=== PATIENT | female | born 2000 | race Caucasian/White ===

== ENCOUNTER 2021-10-23 20:17 | Emergency (ER) | payer OTHER | END 2021-10-23 22:27 | disposition home or self-care (01) | LOC: CSHERS 20:17 | DX: R05.9 Cough, unspecified (principal); Z20.822 Contact with and (suspected) exposure to COVID-19 | CPT/HCPCS: 99283 ==

== ENCOUNTER 2021-11-19 16:32 | Emergency (ER) | payer OTHER | END 2021-11-19 18:19 | disposition home or self-care (01) | LOC: CSHERS 16:32 | DX: O99.891 Other specified diseases and conditions complicating pregnancy (principal); M54.9 Dorsalgia, unspecified; Z3A.14 14 weeks gestation of pregnancy; W01.0XXA Fall on same level from slipping, tripping and stumbling without subsequent striking against object, initial encounter ==

== ENCOUNTER 2021-12-18 12:31 | Emergency (ER) | payer OTHER ==
[2021-12-18 23:46] LABS: SARS-CoV-2 PCR by NAA Not Detected (NotDetected)
== END 2021-12-18 15:05 | disposition home or self-care (01) ==
LOC: CSHERS 12:31
DX: B34.9 Viral infection, unspecified (principal); Z20.822 Contact with and (suspected) exposure to COVID-19
CPT/HCPCS: 87804; 99283; U0003; U0005

== ENCOUNTER 2022-01-31 16:36 | Emergency (ER) | payer OTHER ==
[2022-01-31 17:53] LABS: Bilirubin Neg (Negative); Blood, Urine Negative (Negative); Clarity Clear (Clear); Glucose, Urine (Dipstick) Normal (Negative); Ketone, Urine Negative (Negative); Leukocyte Negative (Negative); Nitrite Negative (Negative); Protein, Urine (Dipstick) 15 mg/dl (Neg-Trace); Specific Gravity, Urine 1.025 (1.002-1.036)
== END 2022-01-31 18:35 | disposition home or self-care (01) ==
LOC: CSHERS 16:36
DX: O99.891 Other specified diseases and conditions complicating pregnancy (principal); M54.50 Low back pain, unspecified; Z87.891 Personal history of nicotine dependence; Z3A.24 24 weeks gestation of pregnancy
CPT/HCPCS: 81003; 99283

== ENCOUNTER 2022-04-03 11:02 | Day surgery (SDC) | payer OTHER ==
[2022-04-03 12:27] VITALS: BMI 31.8
[2022-04-03] MEDS ORDERED: hydrALAZINE 20 MG/ML VIAL SLOW IVP PRN (13:09)
[2022-04-03 19:42] LABS: Hemoglobin A1c 5.2 % (4.0-6.0)
== END 2022-04-03 14:30 | disposition home or self-care (01) ==
LOC: CSHLD/OP 11:02
PROVIDERS: ATTEND Obstetrics & Gynecology
DX: O26.893 Other specified pregnancy related conditions, third trimester (principal); R10.2 Pelvic and perineal pain; M54.50 Low back pain, unspecified; O99.343 Other mental disorders complicating pregnancy, third trimester; F41.9 Anxiety disorder, unspecified; O24.415 Gestational diabetes mellitus in pregnancy, controlled by oral hypoglycemic drugs; Z3A.33 33 weeks gestation of pregnancy; Z91.19 Patient's noncompliance with other medical treatment and regimen
CPT/HCPCS: 36415; 36416; 76819; 83036; 99283

== ENCOUNTER → 2022-04-17 15:02 | Emergency (ER) | payer OTHER | END | disposition home or self-care (01) | LOC: CSHERS 15:02 | DX: O99.713 Diseases of the skin and subcutaneous tissue complicating pregnancy, third trimester (principal); L03.111 Cellulitis of right axilla; Z3A.35 35 weeks gestation of pregnancy; Z87.891 Personal history of nicotine dependence | CPT/HCPCS: 99283 ==

== ENCOUNTER 2022-04-20 11:30 | Observation (INO) | payer OTHER ==
[2022-04-20] MEDS ORDERED: Ondansetron PF 4 MG/2 ML Vial ONE (11:39)
[2022-04-20] MEDS ORDERED: Morphine 4 MG/ML VIAL ONE (11:39)
[2022-04-20] MEDS ORDERED: Boostrix 0.5 ML (Tdap) VIAL ONE (12:18)
[2022-04-20 12:19] LABS: ALT (SGPT) 44 U/L (8-55); AST (SGOT) 29 U/L (5-34); Albumin 3.2 g/dL (3.5-5.0); Alkaline Phosphatase 142 U/L (40-110); Anion Gap 17 mmol/L (10-20); BUN (Urea Nitrogen) 10 mg/dL (7.0-18.7); Bilirubin, Total 0.8 mg/dL (0.2-1.2); Calc. Creatinine Clearance 0 mL/min (70-130); Calcium 8.3 mg/dL (7.8-10.44); Carbon Dioxide 16 mmol/L (22-29); Chloride 108 mmol/L (98-107); Globulin 2.9 g/dL (2.4-3.5); Glucose 101 mg/dL (70-105); Magnesium 1.7 mg/dL (1.6-2.6); Potassium 3.8 mmol/L (3.5-5.1); Protein, Total 6.1 g/dL (6.0-8.3); Sodium 137 mmol/L (136-145)
[2022-04-20 13:38] LABS: Bilirubin Neg (Negative); Blood, Urine Negative (Negative); Clarity Clear (Clear); Glucose, Urine (Dipstick) Normal (Negative); Ketone, Urine 15 mg/dL (Negative); Leukocyte Negative (Negative); Nitrite Negative (Negative); Protein, Urine (Dipstick) Negative (Neg-Trace)
[2022-04-20] MEDS ORDERED: Bacitracin 1 PK ONE (13:50)
[2022-04-20] MEDS ORDERED: Acetaminophen 500 MG TAB ONE (14:01)
[2022-04-20] MEDS ORDERED: Ondansetron PF 4 MG/2 ML Vial IVP PRN ×2 (14:17→14:23)
[2022-04-20] MEDS ORDERED: hydrALAZINE 20 MG/ML VIAL SLOW IVP PRN (14:17)
[2022-04-20] MEDS ORDERED: Promethazine HCl 25 MG/ML VIAL IM PRN (14:17)
[2022-04-20] MEDS ORDERED: Iopamidol 300 61% 100 ML VIAL FS ONE (14:27)
[2022-04-20] MEDS ORDERED: traMADol HCl 50 MG TAB PO PRN (14:27)
[2022-04-20] MEDS ORDERED: Acetaminophen 650 MG Suppository PR SCH (14:30)
[2022-04-20] MEDS ORDERED: Morphine 2 MG/ML VIAL SLOW IVP PRN ×2 (14:33→14:58)
[2022-04-20 14:38] LABS: #Eosinphils 0.1 10x3/uL (0.0-0.5); #Monocytes 0.4 10x3/uL (0.0-1.1); #Neutrophils 4.5 10x3/uL (1.5-8.4); %Basophils 0.3 % (0.0-2.0); %Eosinophils 1.2 % (0.0-6.0); %Monocytes 6.1 % (0.0-10.0); %Neutrophils 67.9 % (40.0-75.0); Hemoglobin 10.2 g/dL (12.0-15.5); Mean Corpuscular HGB CONC 32.5 g/dL (32.0-36.0); Mean Corpuscular Hemoglobin 29.2 pg (27.0-33.0); Mean Platelet Volume 12.1 fl (7.4-10.4); Platelet Count 156 10x3/uL (150-450); RBC Distribution Width 15.9 % (11.5-14.5); Red Blood Cell (RBC) Count 3.49 10x6/uL (3.90-5.03); White Blood Cell (WBC) Count 6.6 10x3/uL (3.5-10.5)
[2022-04-20] MEDS: Acetaminophen 325 MG TAB PO SCH ×2 (15:04→20:48)
[2022-04-20] MEDS: Cyclobenzaprine 10 MG TAB PO SCH ×2 (15:04→20:54)
[2022-04-20 15:14] VITALS: BMI 31.1
[2022-04-20 18:40] LABS: SARS-CoV-2 NAA Rapid Test Not Detected (NotDetected)
[2022-04-20] MEDS ORDERED: Zolpidem Tartrate 5 MG TAB PO PRN (20:16)
[2022-04-20] MEDS: busPIRone HCl 15 MG TAB PO SCH (20:49)
[2022-04-20] MEDS: Clindamycin 150 MG CAP PO SCH (20:55)
[2022-04-20] MEDS ORDERED: metFORMIN 500 MG TAB PO SCH (21:30)
[2022-04-20] MEDS: metFORMIN 500 MG TAB PO SCH (21:31)
[2022-04-21] MEDS ORDERED: Morphine 4 MG/ML VIAL SLOW IVP PRN (02:15)
[2022-04-21] MEDS: Cyclobenzaprine 10 MG TAB PO SCH ×2 (02:48→08:53)
[2022-04-21] MEDS: Acetaminophen 325 MG TAB PO SCH ×2 (02:49→08:54)
[2022-04-21] MEDS: Clindamycin 150 MG CAP PO SCH ×2 (02:50→09:19)
[2022-04-21] MEDS: metFORMIN 500 MG TAB PO SCH (08:07)
[2022-04-21] MEDS: busPIRone HCl 15 MG TAB PO SCH (08:55)
[2022-04-21] MEDS ORDERED: Prenatal Vitamin 1 TAB PO SCH (09:00)
== END 2022-04-21 13:13 | disposition home or self-care (01) ==
LOC: CSHERS 11:30 → CSHLD 13:34
PROVIDERS: ADMIT Obstetrics & Gynecology; ATTEND Obstetrics & Gynecology
DX: O9A.213 Injury, poisoning and certain other consequences of external causes complicating pregnancy, third trimester (principal); R10.11 Right upper quadrant pain; M54.2 Cervicalgia; M79.602 Pain in left arm; M25.562 Pain in left knee; M25.531 Pain in right wrist; O24.415 Gestational diabetes mellitus in pregnancy, controlled by oral hypoglycemic drugs; Z3A.35 35 weeks gestation of pregnancy; Z20.822 Contact with and (suspected) exposure to COVID-19; Z87.891 Personal history of nicotine dependence; V29.50XA Motorcycle passenger injured in collision with unspecified motor vehicles in traffic accident, initial encounter
CPT/HCPCS: 36416; 70450; 71045; 72125; 72170; 74177; 76815; 80053; 81003; 83735; 85025; 86850; 86900; 86901; 90715; 96374; 99285; G0378; G0390; J2270; J2405; U0002

== ENCOUNTER 2022-04-23 23:28 | Day surgery (SDC) | payer OTHER ==
[2022-04-23 23:53] VITALS: BMI 31.1
[2022-04-24] MEDS ORDERED: hydrALAZINE 20 MG/ML VIAL SLOW IVP PRN (00:34)
[2022-04-24 01:16] LABS: Bilirubin Neg (Negative); Blood, Urine Negative (Negative); Clarity Clear (Clear); Glucose, Urine (Dipstick) Normal (Negative); Ketone, Urine Negative (Negative); Leukocyte Negative (Negative); Nitrite Negative (Negative); Protein, Urine (Dipstick) Negative (Neg-Trace)
[2022-04-24 01:19] LABS: Urine Culture Reflex No No
[2022-04-24 01:24] LABS: Bacteria/HPF Rare-Few HPF (None Seen); RBC/HPF 0-3 HPF (0-3); Squamous Epithelial 0-3 HPF (0-3); WBC/HPF 0-3 HPF (0-3)
== END 2022-04-24 02:15 | disposition home or self-care (01) ==
LOC: CSHLD/OP 23:28
PROVIDERS: ATTEND Obstetrics & Gynecology
DX: O47.03 False labor before 37 completed weeks of gestation, third trimester (principal); O24.415 Gestational diabetes mellitus in pregnancy, controlled by oral hypoglycemic drugs; Z3A.36 36 weeks gestation of pregnancy; Z79.899 Other long term (current) drug therapy
CPT/HCPCS: 81001; 99283

== ENCOUNTER 2022-04-27 23:03 | Day surgery (SDC) | payer OTHER ==
[2022-04-27 23:24] VITALS: BMI 31.4
[2022-04-28] MEDS ORDERED: Butorphanol Tartrate 1 MG/ML VIAL SLOW IVP PRN (01:16)
[2022-04-28] MEDS ORDERED: hydrALAZINE 20 MG/ML VIAL SLOW IVP PRN (01:16)
[2022-04-28] MEDS ORDERED: Lactated Ringer's 1,000 ML IV SCH (02:00)
== END 2022-04-28 02:50 | disposition home or self-care (01) ==
LOC: CSHLD/OP 23:03
PROVIDERS: ATTEND Obstetrics & Gynecology
DX: O47.03 False labor before 37 completed weeks of gestation, third trimester (principal); O24.415 Gestational diabetes mellitus in pregnancy, controlled by oral hypoglycemic drugs; Z3A.36 36 weeks gestation of pregnancy; Z79.899 Other long term (current) drug therapy; Z87.891 Personal history of nicotine dependence

== ENCOUNTER 2022-04-30 22:17 | Day surgery (SDC) | payer OTHER ==
[2022-04-30 22:47] VITALS: BMI 32.0
[2022-04-30] MEDS ORDERED: hydrALAZINE 20 MG/ML VIAL SLOW IVP PRN (23:11)
== END 2022-04-30 23:50 | disposition home or self-care (01) ==
LOC: CSHLD/OP 22:17
PROVIDERS: ATTEND Obstetrics & Gynecology
DX: O99.891 Other specified diseases and conditions complicating pregnancy (principal); N89.8 Other specified noninflammatory disorders of vagina; O24.415 Gestational diabetes mellitus in pregnancy, controlled by oral hypoglycemic drugs; Z3A.37 37 weeks gestation of pregnancy; Z87.891 Personal history of nicotine dependence; Z79.899 Other long term (current) drug therapy
CPT/HCPCS: 87480; 87510; 87660

== ENCOUNTER 2022-05-01 17:35 | Day surgery (SDC) | payer OTHER ==
[2022-05-01] MEDS ORDERED: hydrALAZINE 20 MG/ML VIAL SLOW IVP PRN (18:10)
[2022-05-01 19:04] VITALS: BMI 31.4
[2022-05-01 19:08] LABS: Fetal Membranes Rupture No Membranes Rupture (No Rupture)
== END 2022-05-01 19:45 | disposition home or self-care (01) ==
LOC: CSHLD/OP 17:35
PROVIDERS: ATTEND Obstetrics & Gynecology
DX: O99.891 Other specified diseases and conditions complicating pregnancy (principal); N89.8 Other specified noninflammatory disorders of vagina; O24.415 Gestational diabetes mellitus in pregnancy, controlled by oral hypoglycemic drugs; Z3A.37 37 weeks gestation of pregnancy; Z87.891 Personal history of nicotine dependence; Z79.2 Long term (current) use of antibiotics; Z79.899 Other long term (current) drug therapy
CPT/HCPCS: 84112

== ENCOUNTER 2022-05-03 15:19 | Outpatient (CLI) | payer OTHER | END 2022-05-03 15:20 | disposition home or self-care (01) | LOC: CSHLAB 15:19 | PROVIDERS: ATTEND Obstetrics & Gynecology | DX: Z20.822 Contact with and (suspected) exposure to COVID-19 (principal) | CPT/HCPCS: 87811 ==

== ENCOUNTER 2022-05-05 14:36 | Inpatient (IN) | payer OTHER ==
[2022-05-05] MEDS ORDERED: hydrALAZINE 20 MG/ML VIAL SLOW IVP PRN ×3 (14:55→22:58)
[2022-05-05 15:11] VITALS: BMI 30.5
[2022-05-05] MEDS: Lactated Ringer's 1,000 ML IV SCH ×2 (15:30→17:21)
[2022-05-05] MEDS ORDERED: Promethazine HCl 25 MG/ML VIAL IM PRN ×2 (15:36→18:02)
[2022-05-05] MEDS ORDERED: Ondansetron PF 4 MG/2 ML Vial IVP PRN ×3 (15:36→22:58)
[2022-05-05] MEDS ORDERED: Acetaminophen 500 MG TAB PO PRN (15:36)
[2022-05-05] MEDS ORDERED: Carboprost 250 MCG/ML AMP IM PRN (15:43)
[2022-05-05] MEDS ORDERED: Diphenoxylate HCl/Atropine Tablet PO PRN (15:43)
[2022-05-05] MEDS ORDERED: Misoprostol 200 MCG TAB PR PRN (15:43)
[2022-05-05] MEDS ORDERED: Lidocaine 1% (PF) 30 ML VIAL SC PRN (15:43)
[2022-05-05] MEDS ORDERED: Methylergonovine 0.2 MG/ML VIAL IM PRN (15:43)
[2022-05-05] MEDS ORDERED: Ibuprofen 800 MG TAB PO PRN (15:43)
[2022-05-05] MEDS ORDERED: NS w/ Oxytocin 30 units 500 ML IV SCH ×3 (15:45→23:00)
[2022-05-05] MEDS ORDERED: Dextrose 50% Abboject 50 ML SYRINGE SLOW IVP PRN (15:54)
[2022-05-05] MEDS ORDERED: HumaLOG 300 UNITS/3 ML VIAL SC PRN ×2 (15:54)
[2022-05-05] MEDS ORDERED: Dextrose 5% in Water 1,000 ML IV PRN (15:54)
[2022-05-05 15:55] LABS: Hemoglobin 11.9 g/dL (12.0-15.5); Mean Corpuscular HGB CONC 34.4 g/dL (32.0-36.0); Mean Corpuscular Hemoglobin 29.5 pg (27.0-33.0); Mean Corpuscular Volume 85.6 fl (81.6-98.3); Mean Platelet Volume 11.7 fl (7.4-10.4); Platelet Count 221 10x3/uL (150-450); RBC Distribution Width 15.3 % (11.5-14.5); Red Blood Cell (RBC) Count 4.04 10x6/uL (3.90-5.03); White Blood Cell (WBC) Count 7.8 10x3/uL (3.5-10.5)
[2022-05-05 16:27] LABS: Hep B Surf Ag Non-Reactive S/CO (NonReactive); Syphilis Antibody Nonreactive (Nonreactive); Syphilis Antibody Index 0.03 S/CO (<1.00 Non-Reactive)
[2022-05-05 16:35] LABS: HBSAg Index 0.17 S/CO (0-0.99)
[2022-05-05 16:45] LABS: Glucose POC Confirmation 81 mg/dl (70-105)
[2022-05-05] MEDS ORDERED: ePHEDrine Sulfate 50 MG/10 ML VIAL ONE (17:00)
[2022-05-05] MEDS ORDERED: Bupivacaine 0.25% HCL 30 ML VIAL ONE (17:00)
[2022-05-05] MEDS ORDERED: Fentanyl 2 mcg/Bup 0.1% Cadd 100 ML ONE (17:16)
[2022-05-05] MEDS ORDERED: Acetaminophen 325 MG TAB PO PRN (18:02)
[2022-05-05] MEDS ORDERED: Moisturizing Cream (Eucerin) 113 GM JAR TOP PRN (18:02)
[2022-05-05] MEDS ORDERED: Naloxone HCl 0.4 mg/ml Vial IVP PRN ×2 (18:02)
[2022-05-05] MEDS ORDERED: ePHEDrine Sulfate 50 MG/10 ML VIAL SLOW IVP PRN (18:02)
[2022-05-05] MEDS ORDERED: diphenhydrAMINE 50 MG/ML VIAL IVP PRN (18:02)
[2022-05-05] MEDS ORDERED: Lactated Ringer's 500 ML IV PRN (18:11)
[2022-05-05] MEDS ORDERED: Fentanyl 2 mcg/Bupivacaine 0.1% Cassette 100 ML EPIDURAL SCH (18:15)
[2022-05-05] MEDS ORDERED: Communication Order-Pharmacy FS SCH (18:15)
[2022-05-05] MEDS: Clindamycin 150 MG CAP PO SCH (19:41)
[2022-05-05] MEDS ORDERED: busPIRone HCl 15 MG TAB PO SCH (21:00)
[2022-05-05] MEDS ORDERED: diphenhydrAMINE 25 MG CAP PO PRN (22:58)
[2022-05-05] MEDS ORDERED: Lanolin Ointment 7 GM TUBE TOP PRN (22:58)
[2022-05-05] MEDS ORDERED: Preparation H Ointment 28 GM TUBE PR PRN (22:58)
[2022-05-05] MEDS ORDERED: Zolpidem Tartrate 5 MG TAB PO PRN (22:58)
[2022-05-05] MEDS ORDERED: Milk Of Magnesia 30 ML UDCUP PO PRN (22:58)
[2022-05-05] MEDS ORDERED: Boostrix 0.5 ML (Tdap) VIAL IM ONE (22:58)
[2022-05-05] MEDS ORDERED: Benzocaine-Menthol 82.5 ML CAN TOP PRN (22:58)
[2022-05-05] MEDS ORDERED: Bisacodyl 10 MG SUPP PR PRN (22:58)
[2022-05-05] MEDS ORDERED: Misoprostol 200 MCG TAB VAG PRN (22:58)
[2022-05-06] MEDS: Ibuprofen 800 MG TAB PO SCH ×3 (01:03→16:11)
[2022-05-06 04:58] LABS: Hemoglobin 10.8 g/dL (12.0-15.5); Mean Corpuscular HGB CONC 35.4 g/dL (32.0-36.0); Mean Corpuscular Hemoglobin 30.2 pg (27.0-33.0); Mean Corpuscular Volume 85.2 fl (81.6-98.3); Platelet Count 176 10x3/uL (150-450); RBC Distribution Width 15.1 % (11.5-14.5); Red Blood Cell (RBC) Count 3.58 10x6/uL (3.90-5.03); White Blood Cell (WBC) Count 10.6 10x3/uL (3.5-10.5)
[2022-05-06] MEDS ORDERED: Ibuprofen 800 MG TAB PO SCH (06:00)
[2022-05-06] MEDS: HYDROcodone/Acetaminophen 5/325 mg Tablet PO PRN ×3 (06:04→20:56)
[2022-05-06] MEDS: Clindamycin 150 MG CAP PO SCH (06:40)
[2022-05-06] MEDS: Ferrous Sulfate 325 MG TAB PO SCH (07:49)
[2022-05-06] MEDS: Prenatal Vitamin 1 TAB PO SCH (08:00)
[2022-05-06] MEDS: Docusate 100 MG CAP PO SCH ×2 (08:00→20:56)
[2022-05-07] MEDS: Ibuprofen 800 MG TAB PO SCH ×2 (00:07→09:09)
[2022-05-07] MEDS: HYDROcodone/Acetaminophen 5/325 mg Tablet PO PRN (05:29)
[2022-05-07] MEDS: Ferrous Sulfate 325 MG TAB PO SCH (08:49)
[2022-05-07 08:51] VITALS: BP 119/78; TEMP 97.9
[2022-05-07] MEDS: Prenatal Vitamin 1 TAB PO SCH (09:08)
[2022-05-07] MEDS: Docusate 100 MG CAP PO SCH (09:08)
== END 2022-05-07 13:50 | disposition home or self-care (01) | DRG 807 ==
LOC: CSHLD/OP 14:36 → CSHLD 16:28 → CSHPP 05-06 01:11
PROVIDERS: ADMIT Obstetrics & Gynecology; ATTEND Obstetrics & Gynecology
PROC: 10E0XZZ Delivery of Products of Conception, External Approach (ICD-10-PCS; principal; 2022-05-05)
DX: O42.02 Full-term premature rupture of membranes, onset of labor within 24 hours of rupture (principal); Z37.0 Single live birth; Z3A.37 37 weeks gestation of pregnancy; F41.9 Anxiety disorder, unspecified; O99.344 Other mental disorders complicating childbirth; O24.425 Gestational diabetes mellitus in childbirth, controlled by oral hypoglycemic drugs; Z79.84 Long term (current) use of oral hypoglycemic drugs; F31.9 Bipolar disorder, unspecified; K21.9 Gastro-esophageal reflux disease without esophagitis; O99.62 Diseases of the digestive system complicating childbirth; Z79.899 Other long term (current) drug therapy
CPT/HCPCS: 36415; 36416; 82947; 85027; 86780; 86850; 86900; 86901; 87340; J2590; J7120; S0020

== ENCOUNTER 2022-05-09 19:52 | Emergency (ER) | payer OTHER ==
[2022-05-09 20:55] LABS: Bilirubin Neg (Negative); Blood, Urine 250 (Negative); Clarity Clear (Clear); Glucose, Urine (Dipstick) Normal (Negative); Ketone, Urine Negative (Negative); Leukocyte 500 (Negative); Nitrite Negative (Negative); Protein, Urine (Dipstick) 30 mg/dl (Neg-Trace); Specific Gravity, Urine 1.025 (1.002-1.036); Urobilinogen Normal mg/dL (Less than 2)
[2022-05-09] MEDS ORDERED: Ketorolac Tromethamine 30 MG/ML VIAL ONE (21:12)
[2022-05-09 21:20] LABS: Bacteria/HPF 2+ HPF (None Seen); RBC/HPF 21-50 HPF (0-3); Squamous Epithelial 0-3 HPF (0-3); WBC/HPF Greater than 50 HPF (0-3)
[2022-05-09] MEDS ORDERED: cefTRIAXone\\ROCEPHIN 1 GM VIAL ONE (21:44)
== END 2022-05-09 22:55 | disposition home or self-care (01) ==
LOC: CSHERS 19:52
DX: N39.0 Urinary tract infection, site not specified (principal); N93.9 Abnormal uterine and vaginal bleeding, unspecified; Z87.891 Personal history of nicotine dependence
CPT/HCPCS: 81003; 81015; 87077; 87086; 87186; 96365; 96375; J0696; J1885

== ENCOUNTER 2022-07-03 09:49 | Emergency (ER) | payer OTHER ==
[2022-07-03 10:32] LABS: Bilirubin Neg (Negative); Blood, Urine 150 (Negative); Clarity Clear (Clear); Glucose, Urine (Dipstick) Normal (Negative); Ketone, Urine Negative (Negative); Leukocyte 25 (Negative); Nitrite Negative (Negative); Protein, Urine (Dipstick) 15 mg/dl (Neg-Trace); Specific Gravity, Urine 1.025 (1.002-1.036); Urobilinogen Normal mg/dL (Less than 2)
[2022-07-03 10:46] LABS: RBC/HPF 21-50 HPF (0-3); Squamous Epithelial 0-3 HPF (0-3); WBC/HPF 0-3 HPF (0-3)
[2022-07-03 10:48] LABS: Bacteria/HPF 1+ HPF (None Seen)
[2022-07-03 11:04] LABS: Pregnancy Test - Urine (BHCG) Negative (Negative); Pregu Control Background? CLEAR/WHITE (CLR/WHITE); Pregu Control Bar Appear? YES (CONTROL BAR); Specific Gravity 1.025 (1.002-1.036)
== END 2022-07-03 12:32 | disposition home or self-care (01) ==
LOC: CSHERS 09:49
DX: L73.9 Follicular disorder, unspecified (principal); N93.9 Abnormal uterine and vaginal bleeding, unspecified; Z87.891 Personal history of nicotine dependence
CPT/HCPCS: 81003; 81015; 81025; 99284

== ENCOUNTER 2022-11-13 23:40 | Emergency (ER) | payer MEDICAID, OTHER ==
[2022-11-14] MEDS ORDERED: Ibuprofen 200 MG TAB ONE (00:13)
[2022-11-14] MEDS ORDERED: Acetaminophen 500 MG TAB ONE (00:13)
[2022-11-14] MEDS ORDERED: Dexamethasone 10 MG/ML VIAL ONE (00:13)
[2022-11-14] MEDS ORDERED: Dexamethasone 10 MG/ML VIAL PO SCH (00:15)
[2022-11-14] MEDS ORDERED: Ibuprofen 200 MG TAB PO SCH (00:15)
[2022-11-14] MEDS ORDERED: Acetaminophen 500 MG TAB PO SCH (00:15)
== END 2022-11-14 00:12 | disposition home or self-care (01) ==
LOC: CSHERS 23:40
DX: J02.9 Acute pharyngitis, unspecified (principal); F17.290 Nicotine dependence, other tobacco product, uncomplicated
CPT/HCPCS: 99283; J1100

== ENCOUNTER 2023-04-08 15:10 | Emergency (ER) | payer OTHER ==
[2023-04-08] MEDS ORDERED: Ketorolac Tromethamine 30 MG/ML VIAL ONE (15:47)
[2023-04-08] MEDS ORDERED: Cyclobenzaprine 10 MG TAB ONE (15:48)
== END 2023-04-08 16:00 | disposition home or self-care (01) ==
LOC: CSHERS 15:10
DX: M54.31 Sciatica, right side (principal); F17.290 Nicotine dependence, other tobacco product, uncomplicated
CPT/HCPCS: 96372; 99283; J1885

== ENCOUNTER 2023-04-15 01:28 | Emergency (ER) | payer OTHER ==
[2023-04-15 02:19] LABS: Bilirubin Neg (Negative); Blood, Urine 50 (Negative); Clarity Slightly Cloudy (Clear); Glucose, Urine (Dipstick) Normal (Negative); Ketone, Urine Negative (Negative); Leukocyte 500 (Negative); Nitrite Negative (Negative); Protein, Urine (Dipstick) 15 mg/dl (Neg-Trace); Specific Gravity, Urine 1.025 (1.005-1.030); Urobilinogen Normal mg/dL (Less than 2)
[2023-04-15 02:29] LABS: Bacteria/HPF 1+ HPF (None Seen); CAUTI Indications for Culture Dysuria,urgency,freq; RBC/HPF 0-3 HPF (0-3)
[2023-04-15 02:30] LABS: Urine Culture Reflex No No
[2023-04-15] MEDS ORDERED: Fluconazole 100 MG TAB PO SCH (02:30)
[2023-04-15 02:32] LABS: Pregnancy Test - Urine (BHCG) Negative (Negative); Pregu Control Background? CLEAR/WHITE (CLR/WHITE); Pregu Control Bar Appear? YES (CONTROL BAR); Specific Gravity 1.025 (1.002-1.036)
== END 2023-04-15 02:37 | disposition home or self-care (01) ==
LOC: CSHERS 01:28
DX: N39.0 Urinary tract infection, site not specified (principal); N76.0 Acute vaginitis; F17.290 Nicotine dependence, other tobacco product, uncomplicated
CPT/HCPCS: 81001; 81025; 87086; 99283

== ENCOUNTER 2023-04-16 23:23 | Emergency (ER) | payer OTHER ==
[2023-04-18 00:26] LABS: Chlamydia by PCR, Vaginal Swab Not Detected (NotDetected); GC by PCR, Vaginal Swab Not Detected (NotDetected)
== END 2023-04-17 00:30 | disposition home or self-care (01) ==
LOC: CSHERS 23:23
DX: N76.0 Acute vaginitis (principal); N39.0 Urinary tract infection, site not specified; F17.290 Nicotine dependence, other tobacco product, uncomplicated
CPT/HCPCS: 87480; 87491; 87510; 87591; 87660; 99283

== ENCOUNTER 2023-06-28 09:47 | Emergency (ER) | payer OTHER ==
[2023-06-28] MEDS ORDERED: Ketorolac Tromethamine 30 MG/ML VIAL ONE (11:38)
[2023-06-28 12:13] LABS: Pregnancy Test - Urine (BHCG) Negative (Negative); Pregu Control Background? CLEAR/WHITE (CLR/WHITE); Pregu Control Bar Appear? YES (CONTROL BAR); Specific Gravity 1.025 (1.002-1.036)
== END 2023-06-28 12:21 | disposition home or self-care (01) ==
LOC: CSHERS 09:47
DX: K04.7 Periapical abscess without sinus (principal); F17.290 Nicotine dependence, other tobacco product, uncomplicated
CPT/HCPCS: 81025; 96372; 99283; J1885

== ENCOUNTER 2023-09-04 19:29 | Emergency (ER) | payer OTHER ==
[2023-09-04 20:21] LABS: #Eosinphils 0.1 10x3/uL (0.0-0.5); #Monocytes 0.6 10x3/uL (0.0-1.1); #Neutrophils 8.5 10x3/uL (1.5-8.4); %Basophils 0.2 % (0.0-2.0); %Lymphocytes 27.7 % (18.0-47.0); %Monocytes 4.5 % (0.0-10.0); %Neutrophils 66.4 % (40.0-75.0); Hematocrit 36.5 % (34.9-44.5); Hemoglobin 12.5 g/dL (12.0-15.5); Mean Corpuscular HGB CONC 34.2 g/dL (32.0-36.0); Mean Corpuscular Hemoglobin 29.7 pg (27.0-33.0); Mean Corpuscular Volume 86.7 fl (81.6-98.3); Mean Platelet Volume 10.8 fl (7.4-10.4); Platelet Count 282 10x3/uL (150-450); RBC Distribution Width 12.4 % (11.5-14.5); Red Blood Cell (RBC) Count 4.21 10x6/uL (3.90-5.03); White Blood Cell (WBC) Count 12.7 10x3/uL (3.5-10.5)
[2023-09-04 20:25] LABS: ALT (SGPT) 28 U/L (8-55); AST (SGOT) 17 U/L (5-34); Albumin 4.4 g/dL (3.5-5.0); Alkaline Phosphatase 105 U/L (40-110); Anion Gap 14 mmol/L (10-20); BUN (Urea Nitrogen) 13 mg/dL (7.0-18.7); Bilirubin, Total 0.3 mg/dL (0.2-1.2); Calc. Creatinine Clearance 0 mL/min (70-130); Calcium 9.4 mg/dL (7.8-10.44); Carbon Dioxide 25 mmol/L (22-29); Chloride 103 mmol/L (98-107); Estimated GFR 125; Globulin 3.6 g/dL (2.4-3.5); Glucose 132 mg/dL (70-105); Potassium 3.6 mmol/L (3.5-5.1); Sodium 138 mmol/L (136-145)
[2023-09-04 21:15] LABS: Bilirubin Neg (Negative); Blood, Urine 10 (Negative); Clarity Clear (Clear); Glucose, Urine (Dipstick) Normal (Negative); Ketone, Urine Negative (Negative); Leukocyte Negative (Negative); Nitrite Negative (Negative); Protein, Urine (Dipstick) Negative (Neg-Trace); Urobilinogen Normal mg/dL (Less than 2)
[2023-09-04 21:17] LABS: Pregnancy Test - Urine (BHCG) Negative (Negative); Pregu Control Background? CLEAR/WHITE (CLR/WHITE); Pregu Control Bar Appear? YES (CONTROL BAR)
[2023-09-04 21:23] LABS: Bacteria/HPF Rare-Few HPF (None Seen); CAUTI Indications for Culture Dysuria,urgency,freq; RBC/HPF 0-3 HPF (0-3); Squamous Epithelial 0-3 HPF (0-3); Urine Culture Reflex No No; WBC/HPF None Seen HPF (0-3)
[2023-09-04] MEDS ORDERED: Ketorolac Tromethamine 30 MG/ML VIAL ONE (22:27)
[2023-09-05 15:31] LABS: Chlamydia by PCR, Vaginal Swab *Indeterminate (NotDetected); GC by PCR, Vaginal Swab *Indeterminate (NotDetected)
== END 2023-09-04 22:35 | disposition home or self-care (01) ==
LOC: CSHERS 19:29
DX: N76.0 Acute vaginitis (principal); F17.290 Nicotine dependence, other tobacco product, uncomplicated
CPT/HCPCS: 36415; 80053; 81001; 81025; 85025; 87480; 87491; 87510; 87591; 87660; 96372; 99284; J1885

== ENCOUNTER 2024-01-01 15:17 | Emergency (ER) | payer OTHER, SELFPAY ==
[2024-01-01 16:00] LABS: Bilirubin Neg (Negative); Blood, Urine Negative (Negative); Glucose, Urine (Dipstick) >=1000 mg/dL (Negative); Ketone, Urine Negative (Negative); Leukocyte 500 (Negative); Nitrite Negative (Negative); Protein, Urine (Dipstick) Negative (Neg-Trace); Specific Gravity, Urine 1.015 (1.005-1.030); Urobilinogen Normal mg/dL (Less than 2)
[2024-01-01] MEDS ORDERED: Fluconazole 100 MG TAB PO SCH ×2 (16:00)
[2024-01-01 16:01] LABS: Pregnancy Test - Urine (BHCG) Negative (Negative)
[2024-01-01 16:02] LABS: Pregu Control Background? CLEAR/WHITE (CLR/WHITE); Pregu Control Bar Appear? YES (CONTROL BAR); Specific Gravity 1.015 (1.002-1.036)
[2024-01-01 16:19] LABS: Clarity Hazy (Clear)
[2024-01-01 16:25] LABS: Bacteria/HPF 2+ HPF (None Seen); CAUTI Indications for Culture Pelvic or flank pain; RBC/HPF 0-3 HPF (0-3); Yeast-Budding 1+ HPF (None Seen)
[2024-01-01 16:26] LABS: Mucous/LPF 1+ LPF (<2+)
[2024-01-01 16:27] LABS: Urine Culture Reflex No No
[2024-01-02 01:04] LABS: Chlamydia by PCR, Vaginal Swab Not Detected (NotDetected); GC by PCR, Vaginal Swab Not Detected (NotDetected)
== END 2024-01-01 18:05 | disposition home or self-care (01) ==
LOC: CSHERS 15:17
DX: B37.49 Other urogenital candidiasis (principal); F17.290 Nicotine dependence, other tobacco product, uncomplicated
CPT/HCPCS: 36416; 81001; 81025; 87480; 87491; 87510; 87591; 87660; 99283

== ENCOUNTER 2024-01-04 23:18 | Emergency (ER) | payer SELFPAY | END 2024-01-05 00:11 | disposition home or self-care (01) | LOC: CSHERS 23:18 | DX: B37.31 Acute candidiasis of vulva and vagina (principal); F17.290 Nicotine dependence, other tobacco product, uncomplicated | CPT/HCPCS: 99283 ==

== ENCOUNTER 2024-01-16 13:48 | Emergency (ER) | payer SELFPAY ==
[2024-01-16 14:37] LABS: Actual Bicarbonate (HCO3v) 24.7 mEq/L (22-28); Analyzer IN Cardio CS ER; Base Excess 0.6 mEq/L (-2 - +2); Calcium, Ionized (venous) 1.17 mmol/L (1.16-1.32); Chloride (VBG) 102 mmol/L (98-106); Hematocrit-VBG 44 % (36.0-47.0); Hemoglobin (Hb) 14.8 g/dL (11.7-15.5); Potassium (VBG) 3.87 mmol/L (3.70-5.30); Puncture Site Other Site; Sodium 140 mmol/L (133-146); pH (venous) 7.427 (7.32-7.43)
[2024-01-16 14:42] LABS: #Basophils 0.03 10x3/uL (0.0-0.2); #Eosinphils 0.04 10x3/uL (0.0-0.5); #Monocytes 0.41 10x3/uL (0.0-1.1); #Neutrophils 9.54 10x3/uL (1.5-8.4); %Basophils 0.2 % (0.0-2.0); %Eosinophils 0.3 % (0.0-6.0); %Lymphocytes 16.2 % (18.0-47.0); %Monocytes 3.4 % (0.0-10.0); %Neutrophils 79.6 % (40.0-75.0); Hematocrit 39.5 % (34.9-44.5); Hemoglobin 13.7 g/dL (12.0-15.5); Mean Corpuscular HGB CONC 34.7 g/dL (32.0-36.0); Mean Corpuscular Hemoglobin 29.8 pg (27.0-33.0); Mean Corpuscular Volume 86.1 fl (81.6-98.3); Mean Platelet Volume 11.2 fl (7.4-10.4); Platelet Count 264 10x3/uL (150-450); RBC Distribution Width 12.5 % (11.5-14.5); Red Blood Cell (RBC) Count 4.59 10x6/uL (3.90-5.03)
[2024-01-16 15:04] LABS: Acetaminophen Less than 10 mcg/mL (10.0-30.0); Alcohol Less than 10.0 mg/dL (Less than 10); Lipase 41 U/L (8-78); Salicylate Less than 8.0 mg/dL (15.0-30.0)
[2024-01-16 15:05] LABS: ALT (SGPT) 14 U/L (8-55); AST (SGOT) 14 U/L (5-34); Albumin 4.8 g/dL (3.5-5.0); Alkaline Phosphatase 91 U/L (40-110); Anion Gap 14 mmol/L (10-20); BUN (Urea Nitrogen) 20 mg/dL (7.0-18.7); Bilirubin, Total 0.5 mg/dL (0.2-1.2); Calc. Creatinine Clearance 0 mL/min (70-130); Calcium 9.5 mg/dL (7.8-10.44); Carbon Dioxide 22 mmol/L (22-29); Chloride 103 mmol/L (98-107); Estimated GFR 119; Globulin 3.2 g/dL (2.4-3.5); Glucose 134 mg/dL (70-105); Potassium 3.9 mmol/L (3.5-5.1); Sodium 135 mmol/L (136-145)
[2024-01-16 15:06] LABS: BHCG - Serum Negative (NEGATIVE); Pregs Control Background? CLEAR/WHITE (CLR/WHITE); Pregs Control Bar Appear? YES (CONTROL BAR)
[2024-01-16 15:13] LABS: Influenza A by NAA Not Detected (NotDetected); Influenza B by NAA Not Detected (NotDetected); SARS-CoV-2 NAA Rapid Test Not Detected (NotDetected)
[2024-01-16] MEDS ORDERED: Acetaminophen 500 MG TAB ONE (15:14)
[2024-01-16 15:49] LABS: Bilirubin Neg (Negative); Blood, Urine 10 (Negative); Clarity Slightly Cloudy (Clear); Glucose, Urine (Dipstick) Normal (Negative); Ketone, Urine 150 mg/dL (Negative); Leukocyte 25 (Negative); Nitrite Negative (Negative); Protein, Urine (Dipstick) 15 mg/dl (Neg-Trace); Specific Gravity, Urine 1.015 (1.005-1.030); Urobilinogen Normal mg/dL (Less than 2)
[2024-01-16 16:05] LABS: Amphetamine Not Detected (NotDetected); Barbiturates Screen Not Detected (NotDetected); Benzodiazepine Screen Not Detected (NotDetected); Cocaine Metabolite Screen Not Detected (NotDetected); Methadone Not Detected (NotDetected); Methamphetamine Not Detected (NotDetected); Opiate Screen Not Detected (NotDetected); Oxycodone Screen Not Detected (NotDetected); Phencyclidine (PCP) Not Detected (NotDetected); THC/Cannabinoid Screen Detected (NotDetected); Tricyclic Screen Not Detected (NotDetected)
[2024-01-16 16:18] LABS: Bacteria/HPF 1+ HPF (None Seen); CAUTI Indications for Culture Dysuria,urgency,freq; RBC/HPF 0-3 HPF (0-3); WBC/HPF 0-3 HPF (0-3)
[2024-01-16 16:20] LABS: Urine Culture Reflex No No
[2024-01-16] MEDS ORDERED: Ketorolac Tromethamine 30 MG (1 mL) VIAL ONE (17:17)
[2024-01-16] MEDS ORDERED: Metoclopramide HCl 10 MG (2 mL) VIAL ONE (17:17)
[2024-01-16] MEDS ORDERED: cefTRIAXone (ROCEPHIN) 1 GM VIAL ONE (17:17)
[2024-01-16] MEDS ORDERED: Ondansetron PF 4 MG/2 ML Vial ONE (17:30)
== END 2024-01-16 19:22 | disposition home or self-care (01) ==
LOC: CSHERS 13:48
DX: N39.0 Urinary tract infection, site not specified (principal); F32.A Depression, unspecified; R42 Dizziness and giddiness; R06.02 Shortness of breath; E11.9 Type 2 diabetes mellitus without complications; F17.290 Nicotine dependence, other tobacco product, uncomplicated; Z55.6 Problems related to health literacy; Z79.84 Long term (current) use of oral hypoglycemic drugs
CPT/HCPCS: 36416; 71045; 80053; 80306; 80307; 81001; 82805; 83690; 84703; 85025; 87077; 87086; 93005; 96365; 96375; J0696; J1885; J2405; J2765

== ENCOUNTER 2024-03-20 17:11 | Emergency (ER) | payer MEDICAID ==
[2024-03-20] MEDS ORDERED: Ketorolac Tromethamine 30 MG (1 mL) VIAL ONE (17:44)
[2024-03-20 17:58] LABS: Bilirubin Neg (Negative); Blood, Urine 10 (Negative); Clarity Clear (Clear); Glucose, Urine (Dipstick) Normal (Negative); Ketone, Urine Negative (Negative); Leukocyte Negative (Negative); Nitrite Negative (Negative); Protein, Urine (Dipstick) 15 mg/dl (Neg-Trace); Specific Gravity, Urine 1.025 (1.005-1.030)
[2024-03-20 18:06] LABS: Pregnancy Test - Urine (BHCG) Negative (Negative); Specific Gravity 1.025 (1.002-1.036)
[2024-03-20 18:07] LABS: Pregu Control Background? CLEAR/WHITE (CLR/WHITE); Pregu Control Bar Appear? YES (CONTROL BAR)
[2024-03-20 18:10] LABS: RBC/HPF 0-3 HPF (0-3)
[2024-03-20 18:11] LABS: CAUTI Indications for Culture Dysuria,urgency,freq; WBC/HPF 0-3 HPF (0-3)
[2024-03-20 18:12] LABS: Bacteria/HPF 1+ HPF (None Seen); Mucous/LPF 1+ LPF (<2+); Urine Culture Reflex No No
== END 2024-03-20 18:37 | disposition home or self-care (01) ==
LOC: CSHERS 17:11
DX: R10.9 Unspecified abdominal pain (principal); F17.290 Nicotine dependence, other tobacco product, uncomplicated; E11.9 Type 2 diabetes mellitus without complications; Z79.84 Long term (current) use of oral hypoglycemic drugs
CPT/HCPCS: 81001; 81025; 96372; 99284; J1885

== ENCOUNTER 2024-07-17 18:26 | Emergency (ER) | payer OTHER ==
[2024-07-17 20:33] LABS: BHCG - Serum Negative (NEGATIVE); Pregs Control Background? CLEAR/WHITE (CLR/WHITE); Pregs Control Bar Appear? YES (CONTROL BAR)
== END 2024-07-17 21:30 | disposition home or self-care (01) ==
LOC: CSHERS 18:26
DX: Z32.02 Encounter for pregnancy test, result negative (principal); E11.9 Type 2 diabetes mellitus without complications; F17.290 Nicotine dependence, other tobacco product, uncomplicated; Z79.4 Long term (current) use of insulin
CPT/HCPCS: 36415; 84703; 99282

== ENCOUNTER 2024-08-09 12:05 | Emergency (ER) | payer OTHER ==
[~2024-08-09 12:05] MED LIST: Iopamidol 300 61% 100 ML VIAL FS ONE
[2024-08-09] MEDS ORDERED: Fluorescein Opthalmic Strip ONE (12:33)
[2024-08-09] MEDS ORDERED: Tetracaine 0.5% PF 4 ML BOT ONE (12:33)
[2024-08-09] MEDS ORDERED: Acetaminophen 500 MG TAB ONE (13:00)
[2024-08-09 13:37] LABS: BHCG - Serum Negative (NEGATIVE); Pregs Control Background? CLEAR/WHITE (CLR/WHITE); Pregs Control Bar Appear? YES (CONTROL BAR)
[2024-08-09] MEDS ORDERED: Acetaminophen 325 MG TAB ONE (13:40)
[2024-08-09 15:03] LABS: #Basophils 0.03 10x3/uL (0.0-0.2); #Eosinophils 0.08 10x3/uL (0.0-0.5); #Monocytes 0.85 10x3/uL (0.0-1.1); #Neutrophils 9.89 10x3/uL (1.5-8.4); %Basophils 0.2 % (0.0-2.0); %Eosinophils 0.6 % (0.0-6.0); %Lymphocytes 13.8 % (18.0-47.0); %Monocytes 6.7 % (0.0-10.0); %Neutrophils 78.3 % (40.0-75.0); Hematocrit 38.1 % (34.9-44.5); Hemoglobin 12.6 g/dL (12.0-15.5); Mean Corpuscular HGB CONC 33.1 g/dL (32.0-36.0); Mean Corpuscular Hemoglobin 28.8 pg (27.0-33.0); Mean Corpuscular Volume 87.2 fL (81.6-98.3); Mean Platelet Volume 10.5 fL (7.4-10.4); Platelet Count 216 10x3/uL (150-450); RBC Distribution Width 12.3 % (11.5-14.5); Red Blood Cell (RBC) Count 4.37 10x6/uL (3.90-5.03); White Blood Cell (WBC) Count 12.6 10x3/uL (3.5-10.5)
[2024-08-09 15:17] LABS: ALT (SGPT) 12 U/L (8-55); AST (SGOT) 18 U/L (5-34); Albumin 3.5 g/dL (3.5-5.0); Alkaline Phosphatase 101 U/L (40-110); Anion Gap 14 mmol/L (10-20); BUN (Urea Nitrogen) 16 mg/dL (7.0-18.7); Bilirubin, Total 0.3 mg/dL (0.2-1.2); Calc. Creatinine Clearance 0 mL/min (70-130); Calcium 9.3 mg/dL (7.8-10.44); Carbon Dioxide 20 mmol/L (22-29); Chloride 108 mmol/L (98-107); Estimated GFR 122; Globulin 4.3 g/dL (2.4-3.5); Glucose 160 mg/dL (70-105); Potassium 3.9 mmol/L (3.5-5.1); Protein, Total 7.8 g/dL (6.0-8.3); Sodium 138 mmol/L (136-145)
== END 2024-08-09 15:50 | disposition home or self-care (01) ==
LOC: CSHERS 12:05
DX: S05.01XA Injury of conjunctiva and corneal abrasion without foreign body, right eye, initial encounter (principal); H10.9 Unspecified conjunctivitis; J20.9 Acute bronchitis, unspecified; F17.290 Nicotine dependence, other tobacco product, uncomplicated; X58.XXXA Exposure to other specified factors, initial encounter
CPT/HCPCS: 36415; 71045; 71275; 80053; 84703; 85025; 85379; 87081; 87428; 87430; Q9967

== ENCOUNTER 2024-08-12 08:25 | Emergency (ER) | payer OTHER ==
[2024-08-12] MEDS ORDERED: Dexamethasone 10 MG/ML VIAL ONE (08:55)
== END 2024-08-12 09:09 | disposition home or self-care (01) ==
LOC: CSHERS 08:25
DX: H66.92 Otitis media, unspecified, left ear (principal); F17.290 Nicotine dependence, other tobacco product, uncomplicated; E11.9 Type 2 diabetes mellitus without complications
CPT/HCPCS: 71045; 96372; J1100

== ENCOUNTER 2024-09-12 20:08 | Emergency (ER) | payer OTHER ==
[2024-09-12] MEDS ORDERED: traMADol HCl 50 MG TAB ONE (21:37)
[2024-09-12] MEDS ORDERED: Ketorolac Tromethamine 30 MG (1 mL) VIAL ONE ×2 (21:47)
== END 2024-09-12 21:56 | disposition home or self-care (01) ==
LOC: CSHERS 20:08
DX: M72.2 Plantar fascial fibromatosis (principal); E11.9 Type 2 diabetes mellitus without complications; F17.290 Nicotine dependence, other tobacco product, uncomplicated; Z55.6 Problems related to health literacy
CPT/HCPCS: 96372; 99283; J1885

== ENCOUNTER 2024-10-24 13:39 | Emergency (ER) | payer OTHER ==
[2024-10-24] MEDS ORDERED: Ondansetron PF 4 MG/2 ML Vial ONE (14:38)
[2024-10-24 15:25] LABS: #Basophils 0.05 10x3/uL (0.0-0.2); #Eosinophils 0.22 10x3/uL (0.0-0.5); #Monocytes 0.49 10x3/uL (0.0-1.1); #Neutrophils 6.85 10x3/uL (1.5-8.4); %Basophils 0.5 % (0.0-2.0); %Lymphocytes 30.5 % (18.0-47.0); %Monocytes 4.4 % (0.0-10.0); %Neutrophils 61.9 % (40.0-75.0); Hematocrit 41.7 % (34.9-44.5); Hemoglobin 14.3 g/dL (12.0-15.5); Mean Corpuscular HGB CONC 34.3 g/dL (32.0-36.0); Mean Corpuscular Hemoglobin 29.3 pg (27.0-33.0); Mean Corpuscular Volume 85.5 fL (81.6-98.3); Mean Platelet Volume 10.6 fL (7.4-10.4); Platelet Count 226 10x3/uL (150-450); RBC Distribution Width 12.4 % (11.5-14.5); Red Blood Cell (RBC) Count 4.88 10x6/uL (3.90-5.03); White Blood Cell (WBC) Count 11.1 10x3/uL (3.5-10.5)
[2024-10-24 15:41] LABS: ALT (SGPT) 17 U/L (8-55); AST (SGOT) 17 U/L (5-34); Albumin 3.9 g/dL (3.5-5.0); Alkaline Phosphatase 99 U/L (40-110); Anion Gap 14 mmol/L (10-20); BUN (Urea Nitrogen) 12 mg/dL (7.0-18.7); Bilirubin, Total 0.3 mg/dL (0.2-1.2); Calc. Creatinine Clearance 0 mL/min (70-130); Calcium 9.5 mg/dL (7.8-10.44); Carbon Dioxide 18 mmol/L (22-29); Chloride 109 mmol/L (98-107); Estimated GFR 117; Globulin 3.7 g/dL (2.4-3.5); Glucose 132 mg/dL (70-105); Protein, Total 7.6 g/dL (6.0-8.3); Sodium 137 mmol/L (136-145)
[2024-10-24 15:52] LABS: BHCG - Serum Negative (NEGATIVE); Pregs Control Background? CLEAR/WHITE (CLR/WHITE); Pregs Control Bar Appear? YES (CONTROL BAR)
[2024-10-24 16:21] LABS: Platelet Adequacy Comment Appears Adequate; RBC Morph Comment Within Normal Limits
== END 2024-10-24 16:15 | disposition home or self-care (01) ==
LOC: CSHERS 13:39
DX: F19.239 Other psychoactive substance dependence with withdrawal, unspecified (principal); R11.2 Nausea with vomiting, unspecified; E11.9 Type 2 diabetes mellitus without complications; F17.290 Nicotine dependence, other tobacco product, uncomplicated
CPT/HCPCS: 80053; 84703; 85025; 96374; J2405

== ENCOUNTER 2025-06-09 12:42 | Observation (INO) | payer OTHER ==
[2025-06-09 13:06] VITALS: BMI 36.6
[2025-06-09] MEDS ORDERED: hydrALAZINE 20 MG/ML VIAL SLOW IVP PRN ×2 (13:23→17:29)
[2025-06-09 13:59] LABS: #Basophils Less than 0.03 10x3/uL (0.0-0.2); #Eosinophils 0.06 10x3/uL (0.0-0.5); #Monocytes 0.44 10x3/uL (0.0-1.1); #Neutrophils 7.98 10x3/uL (1.5-8.4); %Basophils 0.2 % (0.0-2.0); %Eosinophils 0.7 % (0.0-6.0); %Lymphocytes 3.7 % (18.0-47.0); %Monocytes 4.9 % (0.0-10.0); %Neutrophils 89.8 % (40.0-75.0); Hematocrit 29.8 % (34.9-44.5); Hemoglobin 10.0 g/dL (12.0-15.5); Mean Corpuscular Hemoglobin 29.8 pg (27.0-33.0); Mean Corpuscular Volume 88.7 fL (81.6-98.3); Platelet Count 138 10x3/uL (150-450); Red Blood Cell (RBC) Count 3.36 10x6/uL (3.90-5.03); White Blood Cell (WBC) Count 8.89 10x3/uL (3.5-10.5)
[2025-06-09 14:11] LABS: Glucose, Urine (Dipstick) Normal (Negative); Leukocyte Negative (Negative); Protein, Urine (Dipstick) Negative (Neg-Trace); Specific Gravity, Urine 1.010 (1.005-1.030)
[2025-06-09 14:26] LABS: ALT (SGPT) 31 U/L (Less than 34); AST (SGOT) 42 U/L (11-34); Albumin 3.3 g/dL (3.1-4.5); Alkaline Phosphatase 109 U/L (40-110); Anion Gap 16 mmol/L (10-20); BUN (Urea Nitrogen) 7 mg/dL (7.0-18.7); Bilirubin, Total 1.0 mg/dL (0.3-1.2); Calc. Creatinine Clearance 254 mL/min (70-130); Calcium 8.9 mg/dL (7.8-10.44); Carbon Dioxide 19 mmol/L (22-29); Chloride 105 mmol/L (98-107); Globulin 3.5 g/dL (2.4-3.5); Glucose 185 mg/dL (70-105); Potassium 3.8 mmol/L (3.5-5.1); Sodium 136 mmol/L (136-145)
[2025-06-09] MEDS: cefTRIAXone\\ROCEPHIN 1 GM in Sodium Chloride 0.9% 100 ML IVPB SCH (14:35)
[2025-06-09 14:37] LABS: CAUTI Indications for Culture Pregnancy; RBC/HPF None Seen HPF (0-3); WBC/HPF 0-3 HPF (0-3)
[2025-06-09 14:38] LABS: Bacteria/HPF 1+ HPF (None Seen)
[2025-06-09 14:39] LABS: Urine Culture Reflex Yes Yes
[2025-06-09] MEDS: Acetaminophen 500 MG TAB PO SCH (15:26)
[2025-06-09] MEDS ORDERED: Oxytocin 30 units/NS 500 ML 500 ML IV SCH (17:30)
[2025-06-09] MEDS: Cyclobenzaprine 10 MG TAB PO SCH ×2 (18:06→21:39)
[2025-06-09] MEDS: Ondansetron PF 4 MG/2 ML Vial IVP PRN (20:59)
[2025-06-09] MEDS: Lantus 1000 UNITS/10 ML VIAL SC SCH (21:40)
[2025-06-10] MEDS: Acetaminophen 500 MG TAB PO PRN ×2 (03:56→14:08)
[2025-06-10 04:34] LABS: Cocaine Metabolite Screen Negative (Negative); THC/Cannabinoid Screen Negative (Negative); Tricyclic Screen Negative (Negative)
[2025-06-10] MEDS: Lantus 1000 UNITS/10 ML VIAL SC SCH (05:30)
[2025-06-10 06:01] LABS: #Basophils Less than 0.03 10x3/uL (0.0-0.2); #Eosinophils Less than 0.03 10x3/uL (0.0-0.5); #Monocytes 0.56 10x3/uL (0.0-1.1); #Neutrophils 5.01 10x3/uL (1.5-8.4); %Basophils 0.2 % (0.0-2.0); %Eosinophils 0.2 % (0.0-6.0); %Lymphocytes 14.9 % (18.0-47.0); %Monocytes 8.4 % (0.0-10.0); %Neutrophils 75.4 % (40.0-75.0); Hematocrit 26.3 % (34.9-44.5); Hemoglobin 8.8 g/dL (12.0-15.5); Mean Corpuscular Hemoglobin 30.1 pg (27.0-33.0); Mean Corpuscular Volume 90.1 fL (81.6-98.3); Platelet Count 142 10x3/uL (150-450); Red Blood Cell (RBC) Count 2.92 10x6/uL (3.90-5.03); White Blood Cell (WBC) Count 6.64 10x3/uL (3.5-10.5)
[2025-06-10 06:16] LABS: ALT (SGPT) 32 U/L (Less than 34); AST (SGOT) 46 U/L (11-34); Albumin 2.7 g/dL (3.1-4.5); Alkaline Phosphatase 87 U/L (40-110); Anion Gap 13 mmol/L (10-20); BUN (Urea Nitrogen) 5 mg/dL (7.0-18.7); Bilirubin, Total 0.7 mg/dL (0.3-1.2); Calc. Creatinine Clearance 254 mL/min (70-130); Calcium 8.5 mg/dL (7.8-10.44); Carbon Dioxide 20 mmol/L (22-29); Chloride 107 mmol/L (98-107); Globulin 3.4 g/dL (2.4-3.5); Glucose 118 mg/dL (70-105); Potassium 3.6 mmol/L (3.5-5.1); Sodium 136 mmol/L (136-145)
[2025-06-10] MEDS: Ferrous Sulfate 325 MG TAB PO SCH (08:09)
[2025-06-10] MEDS: cefTRIAXone\\ROCEPHIN 1 GM in Sodium Chloride 0.9% 100 ML IVPB SCH (14:03)
[2025-06-10] MEDS ORDERED: Sodium Chloride 0.65% Nasal 44 ML BOT EA NARE PRN (15:55)
[2025-06-10] MEDS: Fluconazole 100 MG TAB PO SCH (16:36)
[2025-06-10 17:08] VITALS: BP 101/58; TEMP 98
[2025-06-10] MEDS ORDERED: Lantus 1000 UNITS/10 ML VIAL SC SCH (21:00)
== END 2025-06-10 17:55 | disposition home or self-care (01) ==
LOC: CSHLD/OP 12:42 → CSHLD 18:55 → CSHANTE 22:45
PROVIDERS: ADMIT Emergency Medicine; ATTEND Emergency Medicine
DX: O23.43 Unspecified infection of urinary tract in pregnancy, third trimester (principal); N39.0 Urinary tract infection, site not specified; Z3A.30 30 weeks gestation of pregnancy
CPT/HCPCS: 36415; 36416; 76770; 76819; 80053; 80306; 81001; 82728; 83605; 85025; 87040; 87086; J0696; J1815; J2405; J7120

== ENCOUNTER 2025-06-23 15:24 | Day surgery (SDC) | payer OTHER ==
[2025-06-23 16:04] VITALS: BMI 33.8
[2025-06-23] MEDS: Acetaminophen 500 MG TAB PO SCH (16:45)
[2025-06-23 17:13] LABS: Glucose, Urine (Dipstick) 50 mg/dL (Negative); Leukocyte 25 (Negative); Protein, Urine (Dipstick) 15 mg/dl (Neg-Trace); Specific Gravity, Urine 1.015 (1.005-1.030)
[2025-06-23 17:33] LABS: CAUTI Indications for Culture Pelvic or flank pain; RBC/HPF 0-3 HPF (0-3)
[2025-06-23 17:35] LABS: Bacteria/HPF 1+ HPF (None Seen)
[2025-06-23 17:36] LABS: Urine Culture Reflex No No
== END 2025-06-23 18:39 | disposition home or self-care (01) ==
LOC: CSHLD/OP 15:24
PROVIDERS: ATTEND Family Medicine
DX: O99.891 Other specified diseases and conditions complicating pregnancy (principal); R10.31 Right lower quadrant pain; R11.0 Nausea; O24.113 Pre-existing type 2 diabetes mellitus, in pregnancy, third trimester; Z3A.33 33 weeks gestation of pregnancy
CPT/HCPCS: 81001

== ENCOUNTER 2025-06-27 19:35 | Day surgery (SDC) | payer OTHER ==
[2025-06-27 19:51] VITALS: BMI 33.8
[2025-06-27 21:10] LABS: Fetal Membranes Rupture No Membranes Rupture (No Rupture)
[2025-06-27] MEDS ORDERED: hydrALAZINE 20 MG/ML VIAL SLOW IVP PRN (21:12)
[2025-06-27] MEDS: Acetaminophen 500 MG TAB PO PRN (21:27)
[2025-06-27] MEDS: Cyclobenzaprine 10 MG TAB PO SCH (22:44)
== END 2025-06-27 23:10 | disposition home or self-care (01) ==
LOC: CSHLD/OP 19:35
PROVIDERS: ATTEND Family Medicine
DX: O47.03 False labor before 37 completed weeks of gestation, third trimester (principal); O24.113 Pre-existing type 2 diabetes mellitus, in pregnancy, third trimester; O99.613 Diseases of the digestive system complicating pregnancy, third trimester; K42.9 Umbilical hernia without obstruction or gangrene; O99.343 Other mental disorders complicating pregnancy, third trimester; F41.9 Anxiety disorder, unspecified; O99.891 Other specified diseases and conditions complicating pregnancy; N89.8 Other specified noninflammatory disorders of vagina; O23.43 Unspecified infection of urinary tract in pregnancy, third trimester; Z3A.33 33 weeks gestation of pregnancy; Z79.82 Long term (current) use of aspirin; Z79.4 Long term (current) use of insulin; Z79.899 Other long term (current) drug therapy
CPT/HCPCS: 36416; 76817; 84112; 87480; 87510; 87660

== ENCOUNTER 2025-07-24 17:10 | Inpatient (IN) | payer OTHER ==
[2025-07-24 17:36] VITALS: BMI 36.6
[2025-07-24] MEDS ORDERED: Tranexamic Acid 1,000 MG/10 ML VIAL IVP PRN (17:56)
[2025-07-24] MEDS ORDERED: Bicitra 30 ML UDCUP PO PRN (17:56)
[2025-07-24] MEDS ORDERED: hydrALAZINE 20 MG/ML VIAL SLOW IVP PRN ×2 (17:56→21:37)
[2025-07-24] MEDS ORDERED: Diphenoxylate HCl/Atropine Tablet PO PRN ×2 (17:56)
[2025-07-24] MEDS ORDERED: Famotidine/PF 20 mg/2ml Vial SLOW IVP PRN (17:56)
[2025-07-24] MEDS ORDERED: Carboprost 250 MCG/ML AMP IM PRN (17:56)
[2025-07-24] MEDS ORDERED: Ondansetron PF 4 MG/2 ML Vial IVP PRN ×2 (17:56→18:44)
[2025-07-24] MEDS ORDERED: Azithromycin 500 MG in Sodium Chloride 0.9% 250 ML 250 ML IVPB SCH (18:00)
[2025-07-24] MEDS ORDERED: Oxytocin 30 units/NS 500 ML 500 ML IV SCH ×2 (18:00→21:45)
[2025-07-24] MEDS ORDERED: Clindamycin/D5W 900 MG in Premix 1 BAG IVPB SCH (18:00)
[2025-07-24 18:43] LABS: Hematocrit 33.1 % (34.9-44.5); Hemoglobin 11.4 g/dL (12.0-15.5); Mean Corpuscular Hemoglobin 30.3 pg (27.0-33.0); Mean Corpuscular Volume 88.0 fL (81.6-98.3); Platelet Count 182 10x3/uL (150-450); Red Blood Cell (RBC) Count 3.76 10x6/uL (3.90-5.03); White Blood Cell (WBC) Count 8.18 10x3/uL (3.5-10.5)
[2025-07-24] MEDS ORDERED: Meperidine HCl/PF 25 MG (1 mL) VIAL SLOW IVP PRN (18:44)
[2025-07-24] MEDS ORDERED: Ketorolac Tromethamine 30 MG (1 mL) VIAL IVP SCH (18:45)
[2025-07-24] MEDS ORDERED: Communication Order-Pharmacy FS SCH (18:45)
[2025-07-24 19:01] LABS: Glucose 95 mg/dL (70-105)
[2025-07-24 20:26] LABS: Hep B Surf Ag - L&D Non-Reactive S/CO (NonReactive)
[2025-07-24] MEDS: Methylergonovine 0.2 MG/ML VIAL IM PRN (20:33)
[2025-07-24 20:41] LABS: Syphilis Antibody Index 0.05 S/CO (<1.00 Non-Reactive)
[2025-07-24 20:44] LABS: Analyzer IN Cardio CS NICU; RapidComm Collect By RN
[2025-07-24] MEDS ORDERED: Methylergonovine 0.2 MG/ML VIAL IM PRN (21:37)
[2025-07-24] MEDS ORDERED: Lanolin Ointment 7 GM TUBE TOP PRN (21:37)
[2025-07-24] MEDS ORDERED: Boostrix 0.5 ML (Tdap) VIAL (>/=7 yrs of age) IM ONE (21:37)
[2025-07-24] MEDS ORDERED: Glucagon 1 MG/ML KIT IM PRN (21:41)
[2025-07-24] MEDS ORDERED: Dextrose 50% Abboject 50 ML SYRINGE SLOW IVP PRN (21:41)
[2025-07-24 22:23] LABS: Platelet Count 175.0 10x3/uL (150-450)
[2025-07-24 22:42] LABS: D-Dimer Test 6.45 mcg/mL (0.19-0.50); Fibrinogen 414.0 mg/dL (220-504); INR-International Normal Ratio 0.9; PTT 26.8 sec (22.0-33.0); Prothrombin Time 10.2 sec (9.5-12.1)
[2025-07-24 22:58] LABS: Glucose, Urine (Dipstick) Negative (Negative); Leukocyte Negative (Negative); Protein, Urine (Dipstick) Negative (Neg-Trace); Specific Gravity, Urine 1.020 (1.005-1.030)
[2025-07-24] MEDS: Oxytocin 10 UNITS/ML VIAL ONE ×2 (23:03)
[2025-07-24] MEDS: PHENYLEPHRINE-NS 100 MCG/ML 10 ML SYRINGE ONE (23:03)
[2025-07-24] MEDS: Tranexamic Acid 1,000 MG/10 ML VIAL ONE (23:03)
[2025-07-24] MEDS: Dexamethasone 10 MG/ML VIAL ONE (23:03)
[2025-07-24] MEDS: Ondansetron PF 4 MG/2 ML Vial ONE (23:03)
[2025-07-24] MEDS: Methylergonovine 0.2 MG/ML VIAL ONE (23:03)
[2025-07-24 23:10] LABS: Bacteria/HPF None Seen HPF (None Seen); CAUTI Indications for Culture Pregnancy; WBC/HPF 0-3 HPF (0-3)
[2025-07-24 23:11] LABS: Urine Culture Reflex Yes Yes
[2025-07-25] MEDS: Ketorolac Tromethamine 30 MG (1 mL) VIAL IVP PRN (01:01)
[2025-07-25] MEDS: Clindamycin/D5W 900 MG in Premix 1 BAG IVPB SCH (01:34)
[2025-07-25] MEDS: diphenhydrAMINE 50 MG/ML VIAL IVP PRN (03:49)
[2025-07-25 04:42] LABS: Hematocrit 31.6 % (34.9-44.5); Hemoglobin 10.9 g/dL (12.0-15.5); Mean Corpuscular Hemoglobin 30.2 pg (27.0-33.0); Mean Corpuscular Volume 87.5 fL (81.6-98.3); Platelet Count 165 10x3/uL (150-450); Red Blood Cell (RBC) Count 3.61 10x6/uL (3.90-5.03); White Blood Cell (WBC) Count 15.66 10x3/uL (3.5-10.5)
[2025-07-25] MEDS: Ferrous Sulfate 325 MG TAB PO SCH (09:20)
[2025-07-25] MEDS: HYDROcodone/Acetaminophen 5/325 mg Tablet PO PRN ×2 (14:16→18:50)
[2025-07-25] MEDS: metroNIDAZOLE 500 MG TAB PO SCH (20:47)
[2025-07-25] MEDS: Ibuprofen 800 MG TAB PO SCH (23:30)
[2025-07-26] MEDS: Simethicone Chewable 80 MG TAB PO PRN (00:29)
[2025-07-26] MEDS ORDERED: Cyclobenzaprine 10 MG TAB PO SCH ×2 (05:46→09:00)
[2025-07-26] MEDS: Cyclobenzaprine 10 MG TAB PO SCH ×2 (06:08→21:59)
[2025-07-26] MEDS: Simethicone Chewable 80 MG TAB PO SCH (07:32)
[2025-07-26] MEDS: metroNIDAZOLE 500 MG TAB PO SCH (11:32)
[2025-07-26] MEDS: Acetaminophen 500 MG TAB PO SCH (14:10)
[2025-07-26] MEDS: Transdermal Patch Removal TOP SCH (18:00)
[2025-07-26 18:55] LABS: Glucose, Urine (Dipstick) Normal (Negative); Leukocyte Negative (Negative); Protein, Urine (Dipstick) Negative (Neg-Trace); Specific Gravity, Urine 1.020 (1.005-1.030)
[2025-07-26 19:06] LABS: RBC/HPF None Seen HPF (0-3)
[2025-07-26 19:07] LABS: Bacteria/HPF Rare-Few HPF (None Seen); CAUTI Indications for Culture Dysuria,urgency,freq; Urine Culture Reflex No No; WBC/HPF 0-3 HPF (0-3)
[2025-07-27 04:30] LABS: #Basophils Less than 0.03 10x3/uL (0.0-0.2); #Eosinophils 0.07 10x3/uL (0.0-0.5); #Monocytes 0.46 10x3/uL (0.0-1.1); #Neutrophils 7.77 10x3/uL (1.5-8.4); %Basophils 0.2 % (0.0-2.0); %Eosinophils 0.7 % (0.0-6.0); %Lymphocytes 19.6 % (18.0-47.0); %Monocytes 4.4 % (0.0-10.0); %Neutrophils 74.4 % (40.0-75.0); Hematocrit 26.0 % (34.9-44.5); Hemoglobin 8.6 g/dL (12.0-15.5); Mean Corpuscular Hemoglobin 30.5 pg (27.0-33.0); Mean Corpuscular Volume 92.2 fL (81.6-98.3); Platelet Count 183 10x3/uL (150-450); Red Blood Cell (RBC) Count 2.82 10x6/uL (3.90-5.03); White Blood Cell (WBC) Count 10.44 10x3/uL (3.5-10.5)
[2025-07-27] MEDS ORDERED: Milk Of Magnesia 30 ML UDCUP PO PRN (04:51)
[2025-07-27 05:56] LABS: ALT (SGPT) 13 U/L (Less than 34); AST (SGOT) 15 U/L (11-34); Albumin 2.1 g/dL (3.1-4.5); Alkaline Phosphatase 123 U/L (40-110); Anion Gap 13 mmol/L (10-20); BUN (Urea Nitrogen) 13 mg/dL (7.0-18.7); Bilirubin, Total 0.2 mg/dL (0.3-1.2); Calc. Creatinine Clearance 218 mL/min (70-130); Calcium 8.1 mg/dL (7.8-10.44); Carbon Dioxide 22 mmol/L (22-29); Chloride 106 mmol/L (98-107); Globulin 3.1 g/dL (2.4-3.5); Glucose 136 mg/dL (70-105); Potassium 3.5 mmol/L (3.5-5.1); Sodium 137 mmol/L (136-145)
[2025-07-27] MEDS: metFORMIN 500 MG TAB PO SCH (08:26)
[2025-07-27] MEDS: Clindamycin/D5W 900 MG in Premix 1 BAG IVPB SCH ×2 (08:57→09:11)
[2025-07-27] MEDS ORDERED: Iopamidol 300 61% 100 ML VIAL FS ONE (12:19)
[2025-07-27] MEDS: Ondansetron PF 4 MG/2 ML Vial IVP PRN (22:49)
[2025-07-27] MEDS: Cyclobenzaprine 10 MG TAB PO SCH (22:49)
[2025-07-28 07:35] VITALS: BP 119/56; TEMP 97.7
== END 2025-07-28 12:10 | disposition home or self-care (01) | DRG 784 ==
LOC: CSHLD/OP 17:10 → CSHLD 19:12 → CSHPP 07-25 00:04
PROVIDERS: ADMIT Family Medicine; ATTEND Obstetrics & Gynecology
PROC: 10D00Z1 Extraction of Products of Conception, Low, Open Approach (ICD-10-PCS; principal; 2025-07-24)
PROC: 0UB70ZZ Excision of Bilateral Fallopian Tubes, Open Approach (ICD-10-PCS; 2025-07-24)
DX: O24.12 Pre-existing type 2 diabetes mellitus, in childbirth (principal); O72.1 Other immediate postpartum hemorrhage; Z3A.36 36 weeks gestation of pregnancy; Z37.0 Single live birth; O36.63X0 Maternal care for excessive fetal growth, third trimester, not applicable or unspecified; O99.214 Obesity complicating childbirth; E66.89 Other obesity not elsewhere classified; Z79.899 Other long term (current) drug therapy
CPT/HCPCS: 36415; 36416; 51702; 74177; 80053; 81001; 82805; 82947; 85025; 85027; 85049; 85300; 85362; 85384; 85610; 85730; 86780; 86850; 86900; 86901; 87086; 87340; 88302; 99285; J0456; J1100; J1200; J1580; J1885; J2210; J2250; J2274; J2310; J2590; J3490; J7050; Q9967